=== PATIENT | female | born 1945 | race Caucasian/White ===

== ENCOUNTER 2017-07-02 19:58 | Inpatient (IN) | payer MEDICARE, BC ==
[~2017-07-02] VITALS: Ht 162.6 cm; Wt 60.3 kg
--- NOTE | 2017-07-02 20:10 | NUR ---
MEDICALLY CLEARED BY DR MARTIN
[2017-07-02] MEDS ORDERED: IRBE150T28 PO (20:12)
[2017-07-02] MEDS ORDERED: LEVO137T2 PO (20:12)
[2017-07-02] MEDS ORDERED: ALPR0.5T8 PO (20:12)
[2017-07-02] MEDS ORDERED: TAMS-3 PO (20:12)
--- NOTE | 2017-07-02 20:34 | NUR ---
transfered to [facility] via [facility]. Patient with no distress noted
[2017-07-02 20:45] VITALS: BP 131/73
[2017-07-02] MEDS ORDERED: MAG HYDROX/AL HYDROX/SIMETH 30 ML LIQUID UDC PO PRN (20:45)
[2017-07-02] MEDS ORDERED: TEMAZEPAM 7.5 MG CAPSULE PO PRN (20:45)
[2017-07-02] MEDS ORDERED: LORAZEPAM 1 MG TABLET PO PRN (20:45)
[2017-07-02] MEDS ORDERED: MAGNESIUM HYDROXIDE 30 ML LIQUID UDC PO PRN (20:45)
[2017-07-02] MEDS: TAMSULOSIN HCL 0.4 MG CAP.SR.24H PO SCH (22:33)
[2017-07-02] MEDS: ACETAMINOPHEN 325 MG TABLET PO PRN (22:33)
[2017-07-02] MEDS ORDERED: TAMSULOSIN HCL 0.4 MG CAP.SR.24H ONE (22:36)
--- NOTE | 2017-07-02 23:00 | NUR ---
received to care, at 2034, a transfer from [facility], on a 5150 hold, for danger to self. according to the patient and the medical record, she had a failed suicide attempt, by overdosing on 45 tablets of xanax. she lives with her and her sister. she and her sister both suffer from cancer, and made a suicide pact together. the woke up on 06/27/17 at 11 am, to find both of them unconscious, and surrounded by various pill bottles. he called 911, and patient was taken to the hospital. upon arrival on the unit, she was alert and cooperative, but very anxious. she denied SI. pt agreed to contract for safety, while on the unit. she also denies having depression, stating the suicide attempt was all a result of having anxiety. pt was offered PRN medication for sleep or anxiety, but she declined. she finally fell asleep around 1045. as of 2299, she remains asleep. no distress noted. will continue to monitor closely.
--- NOTE | 2017-07-03 06:00 | NUR ---
slept 7.0 hours, total. no distress noted.
[2017-07-03 08:00] VITALS: BP 140/60
[2017-07-03] MEDS: TAMSULOSIN HCL 0.4 MG CAP.SR.24H PO SCH ×2 (08:55→20:45)
[2017-07-03] MEDS: LEVOTHYROXINE SODIUM 137 MCG TABLET PO SCH (08:55)
[2017-07-03 16:00] VITALS: BP 132/69
[2017-07-03] MEDS ORDERED: IRBESARTAN 75 MG PO PRN ×2 (16:00→18:34)
--- NOTE | 2017-07-03 16:08 | NUR ---
Initial discharge instructions: The patient resides at home with her and her sister [[address] [place] [address]; ( ]. SW spoke with the patient's Marshall Bains who stated that he does not drive but that he will coordinate with a family member to bulk picker the patient and take her home upon discharge. TAYLER will speak with the patient, family, and MD regarding most appropriate discharge plan. SS will form a safe and proper discharge.
[2017-07-03] MEDS ORDERED: TAMSULOSIN HCL 0.4 MG CAP.SR.24H PO SCH (17:00)
[2017-07-03] MEDS ORDERED: IRBESARTAN 75 MG PO ONE (20:00)
[2017-07-03 20:18] VITALS: BP 154/81
[2017-07-03] MEDS: CLONAZEPAM 0.5 MG TABLET PO SCH (22:29)
[2017-07-03] MEDS ORDERED: CLONAZEPAM 0.5 MG TABLET ONE (22:38)
--- NOTE | 2017-07-03 23:00 | NUR ---
received to care, appearing anxious, pacing the hallway intermittently, worried about multiple things, no interactions with peers noted. compliant with medications and staff direction. seen by Dr Bauman. routine klonopin was ordered, but she initially declined, but too0k it at 2228. as of 2299, she appears asleep, in her bed. no distress noted. will continue to monitor closely.
--- NOTE | 2017-07-04 06:00 | NUR ---
slept 8.0 hours, total. no distress noted.
[2017-07-04] MEDS ORDERED: LEVOTHYROXINE SODIUM 137 MCG TABLET PO SCH (09:00)
[2017-07-04] MEDS: CLONAZEPAM 0.5 MG TABLET PO SCH ×2 (09:11→17:45)
[2017-07-04] MEDS: TAMSULOSIN HCL 0.4 MG CAP.SR.24H PO SCH ×2 (09:11→20:16)
[2017-07-04] MEDS: IRBESARTAN 75 MG PO SCH ×2 (09:12→17:45)
[2017-07-04] MEDS: LEVOTHYROXINE SODIUM 137 MCG TABLET PO SCH (09:13)
[2017-07-04 15:00] VITALS: BP 125/66
[2017-07-04 20:37] VITALS: BP 128/65
[2017-07-05] MEDS: LEVOTHYROXINE SODIUM 137 MCG TABLET PO SCH (06:19)
--- NOTE | 2017-07-05 06:54 | NUR ---
GPS: REMAIN CALM AND COOPERATIVE WITH MEDS AND CARE. NO AGITATION NOTED. SLEPT 5 HRS THROUGH THE NIGHT.
[2017-07-05 07:30] VITALS: BP 137/76
[2017-07-05] MEDS: CLONAZEPAM 0.5 MG TABLET PO SCH ×2 (08:46→17:19)
[2017-07-05] MEDS: FLUOXETINE HCL 20 MG CAPSULE PO SCH (08:46)
[2017-07-05] MEDS: TAMSULOSIN HCL 0.4 MG CAP.SR.24H PO SCH ×2 (08:47→21:12)
[2017-07-05] MEDS: IRBESARTAN 75 MG PO SCH ×2 (08:47→17:20)
[2017-07-05 15:00] VITALS: BP 139/65
[2017-07-05 20:22] VITALS: BP 124/61
[2017-07-06] MEDS: ACETAMINOPHEN 325 MG TABLET PO PRN ×2 (03:02→18:21)
--- NOTE | 2017-07-06 05:50 | NUR ---
Patient continue to have difficulty staying asleep. She continue to be preoccupied with staff reporting to her doctor about her behavior ans sleeping pattern.
--- NOTE | 2017-07-06 05:53 | NUR ---
A PO PRN for insomnia medication was offered last night; however. patient refused.
[2017-07-06] MEDS: LEVOTHYROXINE SODIUM 137 MCG TABLET PO SCH (06:31)
[2017-07-06 07:30] VITALS: BP 122/68
[2017-07-06] MEDS: FLUOXETINE HCL 20 MG CAPSULE PO SCH (08:37)
[2017-07-06] MEDS: CLONAZEPAM 0.5 MG TABLET PO SCH ×2 (08:38→16:05)
[2017-07-06] MEDS: TAMSULOSIN HCL 0.4 MG CAP.SR.24H PO SCH ×2 (08:38→20:09)
[2017-07-06] MEDS: IRBESARTAN 75 MG PO SCH ×2 (08:41→16:05)
[2017-07-06 15:54] VITALS: BP 116/60
[2017-07-06 20:21] VITALS: BP 124/52
[2017-07-07] MEDS: LEVOTHYROXINE SODIUM 137 MCG TABLET PO SCH (06:07)
--- NOTE | 2017-07-07 06:59 | NUR ---
Patient slept for approx 5hrs through the night. She continue with anxious mood. She is compliant with medication regiment at this time. denies SI or thought to harm herself
[2017-07-07 07:30] VITALS: BP 126/63
[2017-07-07] MEDS: CLONAZEPAM 0.5 MG TABLET PO SCH ×2 (08:07→16:27)
[2017-07-07] MEDS: TAMSULOSIN HCL 0.4 MG CAP.SR.24H PO SCH ×2 (08:07→20:54)
[2017-07-07] MEDS: FLUOXETINE HCL 20 MG CAPSULE PO SCH (08:07)
[2017-07-07] MEDS: IRBESARTAN 75 MG PO SCH ×2 (08:07→16:27)
[2017-07-07] MEDS ORDERED: FLUOXETINE HCL 10 MG CAPSULE PO ONE (11:00)
[2017-07-07 15:25] VITALS: BP 98/59
[2017-07-07 20:13] VITALS: BP 125/71
[2017-07-08] MEDS: LEVOTHYROXINE SODIUM 137 MCG TABLET PO SCH (06:39)
[2017-07-08 07:30] VITALS: BP 108/52
[2017-07-08] MEDS: IRBESARTAN 75 MG PO SCH ×2 (08:51→16:19)
[2017-07-08] MEDS: TAMSULOSIN HCL 0.4 MG CAP.SR.24H PO SCH ×2 (08:51→20:05)
[2017-07-08] MEDS: CLONAZEPAM 0.5 MG TABLET PO SCH ×2 (08:51→16:18)
[2017-07-08] MEDS: FLUOXETINE HCL 10 MG CAPSULE PO SCH (08:51)
[2017-07-08] MEDS ORDERED: FLUOXETINE HCL 20 MG CAPSULE PO SCH (09:00)
[2017-07-08] MEDS: ACETAMINOPHEN 325 MG TABLET PO PRN (15:22)
[2017-07-08 15:32] VITALS: BP 126/61
[2017-07-08 20:16] VITALS: BP 117/57
[2017-07-09] MEDS: LEVOTHYROXINE SODIUM 137 MCG TABLET PO SCH (06:25)
[2017-07-09 07:30] VITALS: BP 121/78
[2017-07-09] MEDS: CLONAZEPAM 0.5 MG TABLET PO SCH ×4 (08:34→21:03)
[2017-07-09] MEDS: TAMSULOSIN HCL 0.4 MG CAP.SR.24H PO SCH ×2 (08:35→20:03)
[2017-07-09] MEDS: IRBESARTAN 75 MG PO SCH ×2 (08:35→17:00)
[2017-07-09] MEDS: FLUOXETINE HCL 10 MG CAPSULE PO SCH (08:35)
[2017-07-09 16:02] VITALS: BP 93/52
[2017-07-09 20:08] VITALS: BP 102/56
[2017-07-10] MEDS: LEVOTHYROXINE SODIUM 137 MCG TABLET PO SCH (06:22)
[2017-07-10 07:30] VITALS: BP 94/54
[2017-07-10 08:30] VITALS: BP 120/52
[2017-07-10 08:51] LABS: BASOPHILS % (AUTO) 0.1 % (0.0-2.0); EOSINOPHILS % (AUTO) 0.4 % (0.0-7.0); HEMATOCRIT 38.3 % (37-47); HEMOGLOBIN 12.9 G/DL (12.0-16.0); LYMPHOCYTES # (AUTO) 2.1 K/UL (0.8-4.8); LYMPHOCYTES % (AUTO) 27.8 % (20.5-51.5); MEAN CORPUSCULAR HEMOGLOBIN 32.9 UUG (27.0-31.0); MEAN CORPUSCULAR HGB CONC 34 g/dL (32.0-37.0); MEAN CORPUSCULAR VOLUME 97.7 FL (81.0-99.0); MONOCYTES # (AUTO) 0.5 K/UL (0.1-1.30); MONOCYTES % (AUTO) 6.6 % (0.0-11.0); NEUTROPHILS # (AUTO) 4.8 K/UL (1.8-8.9); NEUTROPHILS % (AUTO) 65.1 % (38.5-71.5); PLATELET COUNT (AUTO) 392 K/UL (150-450); RED BLOOD CELL COUNT(AUTO) 3.92 MIL/UL (4.2-5.4); WHITE BLOOD COUNT (AUTO) 7.4 K/UL (4.0-11.2)
[2017-07-10] MEDS: CLONAZEPAM 0.5 MG TABLET PO SCH ×4 (08:56→20:35)
[2017-07-10] MEDS: FLUOXETINE HCL 10 MG CAPSULE PO SCH (08:56)
[2017-07-10] MEDS: TAMSULOSIN HCL 0.4 MG CAP.SR.24H PO SCH ×2 (08:56→20:35)
[2017-07-10] MEDS: IRBESARTAN 75 MG PO SCH ×2 (08:58→16:54)
[2017-07-10 09:26] LABS: BILIRUBIN,TOTAL 0.6 mg/dL (0.2-1.0); CREATININE 0.9 mg/dL (0.6-1.3); MAGNESIUM 2.2 mg/dL (1.8-2.4); PHOSPHOROUS 3.3 mg/dL (2.5-4.9); POTASSIUM 4.1 mmol/L (3.5-5.1); TOTAL PROTEIN, SERUM 7.9 g/dL (6.4-8.2)
[2017-07-10 10:36] LABS: THYROID STIMULATING HORMONE 0.46 mIU/mL (0.358-3.740)
[2017-07-10 16:00] VITALS: BP 105/61
[2017-07-10 20:42] VITALS: BP 136/64
--- NOTE | 2017-07-10 21:29 | NUR ---
PATIENT RECEIVED IN ROOM AWAKE,PATIENT IS LESS ANXIOUS. PATIENT COMPLIANT WITH MEDICATION AND CARE, PATIENT IS AMBULATORY/SELF CARE ABLE TO MAKE NEEDS KNOWN. PATIENT DENIES SUICIDAL IDEATION. NO AGGRESSIVE OR COMBATIVE BEHAVIOR NOTED WILL CONTINUE TO MONITOR AND REDIRECT NEEDED. PATIENT DENIES PAIN AT THIS TIME, WILL CONTINUE TO MONITOR. PATIENT ENCOURAGED TO ATTEND GROUP ACTIVITIES, AND ENCOURAGED TO EXPRESS FEELINGS AND CONCERNS. BED IN LOWEST POSITION, BED LOCKED.
[2017-07-11] MEDS: LEVOTHYROXINE SODIUM 137 MCG TABLET PO SCH (06:16)
[2017-07-11 07:30] VITALS: BP 112/56
[2017-07-11] MEDS: CLONAZEPAM 0.5 MG TABLET PO SCH ×4 (08:35→20:39)
[2017-07-11] MEDS: FLUOXETINE HCL 10 MG CAPSULE PO SCH (08:35)
[2017-07-11] MEDS: TAMSULOSIN HCL 0.4 MG CAP.SR.24H PO SCH ×2 (08:35→20:39)
[2017-07-11] MEDS: IRBESARTAN 75 MG PO SCH ×2 (08:36→17:00)
[2017-07-11 16:00] VITALS: BP 93/50
[2017-07-11 20:22] VITALS: BP 132/59
[2017-07-11] MEDS: ACETAMINOPHEN 325 MG TABLET PO PRN (23:25)
[2017-07-12] MEDS: LEVOTHYROXINE SODIUM 137 MCG TABLET PO SCH (06:16)
[2017-07-12 07:30] VITALS: BP 120/69
[2017-07-12] MEDS: FLUOXETINE HCL 10 MG CAPSULE PO SCH (08:04)
[2017-07-12] MEDS: CLONAZEPAM 0.5 MG TABLET PO SCH ×2 (08:04→12:29)
[2017-07-12] MEDS: TAMSULOSIN HCL 0.4 MG CAP.SR.24H PO SCH (08:05)
[2017-07-12] MEDS: IRBESARTAN 75 MG PO SCH (08:06)
--- NOTE | 2017-07-12 10:25 | NUR ---
DC Note: The patient will be discharged today back home [[address] [place] [address]; ( ] with her TAYLER spoke with the patient's Marshall Bains who stated that he will be coming to picker feeder the patient with other family members including the patient's twin sister and cousin at 12:00 pm today. The patient's cousin Marcel will be providing transportation. The patient will follow-up with her property site manager Dr. Vargas Almonte . The patient will be be attending [facility] at [facility] [[address] [address] ]. The patient may also follow-up with psychiatrist Dr. Drew Bradley , Dr. Briana St , and Dr. Ac Bravo .
--- NOTE | 2017-07-12 13:00 | NUR ---
pt was discharged home with . pt was provided with exit care, prescription, and all belongings (including medication) pt denies Suicidal Ideation. pt is stable for discharge.
--- NOTE | 2017-07-12 17:24 | NUR ---
PT CALLED ABOUT HER PRESCRIPTIONS. SAYING SHE WANTED TO USE HER MAIL IN PHARMACY, BUT THEY WANTED A DIFFERENT KIND OF PRESCRIPTION. WHEN ASKED IF THERE WAS AN ISSUE WITH HER PRESCRIPTION, PT STATES "NO, I JUST NEED A DIFFERENT ONE, OR THE DR CAN PERSONALLY FAX IT IN HIMSELF, NOT ME OR A NURSE. " I STATED THE DR DOES NOT HAVE A OFFICE TO FAX IT FROM, AND HAS ALREADY MADE ROUNDS TODAY, PLUS THERE WILL LIKLEY BE AN ISSUE WITH A FAXED RX FOR CLONOPIN SINCE IT IS A CONTROLLED SUBSTANCE. I AGAIN SUGGESTED THE PT SHOULD GO TO A LOCAL PHARMACY [facility] TO FILL HER MEDS.
--- NOTE | 2017-07-12 19:28 | NUR ---
pt has continued to call multiple times regarding her prescriptions. pt is extremley anxious and is yelling over the phone. pt is not making sense, is talking in circles, and is not able to communicate what the problem is with her prescription . pt states "[facility] does not carry that formulary of prozac, what am i supposed to" asked her to clarify and she states "[facility] does not [facility] that kind of prozac". i suggested she goes to another pharmacy that carries that dose of prozac and pt started screaming not fully understandable about dr slime de guzman a preauthorization. when asked to clarify again she started rambling about pre authorizations for insurance. I told the pt that I am unaware of what preauthorization she is referring to. I suggested again she goes to a local pharmacy to get her rx filled. pt states she only uses mail order pharmacy, so I told her to fill it through there. pt started crying hysterically and put on phone. I advised to fill rx at a local pharmacy to avoid delay in medication use, pt grabbed phone back from then cussed at me and hung up on me.
== END 2017-07-12 13:00 | disposition home or self-care (01) | DRG 885 ==
LOC: ER 19:58 → GPS 20:29
PROVIDERS: ADMIT Psychiatry & Neurology Psychiatry; ATTEND Nurse Practitioner Acute Care
DX: F33.2 Major depressive disorder, recurrent severe without psychotic features (principal); C84.A0 Cutaneous T-cell lymphoma, unspecified, unspecified site; F41.9 Anxiety disorder, unspecified; E03.9 Hypothyroidism, unspecified; Z96.651 Presence of right artificial knee joint; Z79.899 Other long term (current) drug therapy; T42.4X2D Poisoning by benzodiazepines, intentional self-harm, subsequent encounter; Z92.3 Personal history of irradiation; Z92.21 Personal history of antineoplastic chemotherapy; F42.9 Obsessive-compulsive disorder, unspecified; I10 Essential (primary) hypertension; Z88.2 Allergy status to sulfonamides
CPT/HCPCS: 36415; 83735; 84100; 84443; 85025; A4663